=== PATIENT | female | born 1930 | race Caucasian/White ===

== ENCOUNTER 2017-08-03 12:40 | Inpatient (IN) | payer OTHER ==
[~2017-08-03] VITALS: Ht 157.5 cm; Wt 77.2 kg
[2017-08-03 12:49] VITALS: Ht 157.5 cm; Wt 77.2 kg
[2017-08-03 13:38] LABS: BASOPHIL % 0.3 % (0-2); PLATELET COUNT 258 x10^3mcL (130-400); RED CELL DISTRIBUTION WIDTH 13.3 % (11.5-14.5)
[2017-08-03 13:42] LABS: CALCIUM 9.3 mg/dL (8.5-10.1); CHLORIDE SERUM 101 mmol/L (98-107); CREATININE SERUM 0.7 mg/dL (0.6-1.0); GLUCOSE SERUM 107 mg/dL (74-106); POTASSIUM SERUM 4.5 mmol/L (3.5-5.1); SODIUM SERUM 135 mmol/L (136-145)
[2017-08-03 13:44] LABS: microscopic required? YES; urine erythrocyte 1+ (NEGATIVE)
[2017-08-03 13:53] LABS: ALBUMIN 3.9 g/dL (3.4-5.0); ALKALINE PHOSPHATASE 107 U/L (46-116); ALT/SGPT 21 U/L (14-59); AST/SGOT 23 U/L (15-37); BILIRUBIN TOTAL 0.61 mg/dL (0.20-1.00); TOTAL PROTEIN, SERUM 8.2 g/dL (6.4-8.2)
[2017-08-03 14:04] LABS: CK-MB < 0.5 ng/mL (0-3.6); CREATINE KINASE 41 U/L (26-192)
[2017-08-03 15:02] VITALS: BP 160/70
[2017-08-03 15:02] LABS: MAGNESIUM 2.2 mg/dL (1.8-2.4); PHOSPHOROUS 3.1 mg/dL (2.5-4.9)
[2017-08-03 15:03] LABS: CHOLESTEROL/HDL RATIO 4.5
[2017-08-03 15:08] LABS: T3 TOTAL 1.04 ng/mL
[2017-08-03 15:11] LABS: FREE T4 1.31 ng/dL (0.76-1.46); FREE THYROXINE INDEX 3.6 ug/dL (1.4-4.5); T4(THYROXINE) 10.3 ug/dL (4.7-13.3)
[2017-08-03 16:38] VITALS: BP 166/81
[2017-08-03 20:18] VITALS: BP 120/57
[2017-08-04 05:31] VITALS: BP 142/68
[2017-08-04 06:53] LABS: BASOPHIL % 0.5 % (0-2); PLATELET COUNT 233 x10^3mcL (130-400); RED CELL DISTRIBUTION WIDTH 13.2 % (11.5-14.5)
[2017-08-04 07:24] LABS: CALCIUM 8.4 mg/dL (8.5-10.1); CARBON DIOXIDE 25.9 mmol/L (21-32); CHLORIDE SERUM 109 mmol/L (98-107); CREATININE SERUM 0.6 mg/dL (0.6-1.0); GLUCOSE SERUM 93 mg/dL (74-106); MAGNESIUM 1.8 mg/dL (1.8-2.4); PHOSPHOROUS 3.1 mg/dL (2.5-4.9); POTASSIUM SERUM 4.3 mmol/L (3.5-5.1); SODIUM SERUM 141 mmol/L (136-145)
[2017-08-04 09:45] VITALS: BP 144/66
[2017-08-04 13:28] VITALS: BP 143/61
[2017-08-04 16:51] VITALS: BP 132/89
[2017-08-04 16:52] VITALS: BP 120/77
[2017-08-04 20:59] VITALS: BP 103/67
[2017-08-05 05:50] VITALS: BP 137/59
[2017-08-05 07:25] LABS: BASOPHIL % 0.9 % (0-2); PLATELET COUNT 212 x10^3mcL (130-400); RED CELL DISTRIBUTION WIDTH 13.7 % (11.5-14.5)
[2017-08-05 07:35] LABS: CALCIUM 8.4 mg/dL (8.5-10.1); CHLORIDE SERUM 110 mmol/L (98-107); CREATININE SERUM 0.6 mg/dL (0.6-1.0); GLUCOSE SERUM 92 mg/dL (74-106); SODIUM SERUM 146 mmol/L (136-145)
[2017-08-05 09:37] VITALS: BP 166/66
[2017-08-05] MEDS ORDERED: LEVOFLOXACIN500 M1 PO (13:14)
[2017-08-05] MEDS ORDERED: LAC PO (13:14)
[2017-08-05] MEDS ORDERED: ZES5 PO (13:34)
[2017-08-05 13:59] VITALS: BP 177/88
[2017-08-05 15:22] VITALS: BP 158/69
[2017-08-05 17:09] VITALS: BP 158/69
[2017-08-05] MEDS ORDERED: LIPI10 PO (17:36)
== END 2017-08-05 18:26 | disposition home or self-care (01) | DRG 48 ==
LOC: ED 12:40 → DU 14:03
PROVIDERS: Emergency Medicine; Family Medicine
DX: G90.8 Other disorders of autonomic nervous system (principal); E87.0 Hyperosmolality and hypernatremia; N39.0 Urinary tract infection, site not specified; I16.0 Hypertensive urgency; E78.5 Hyperlipidemia, unspecified; Z53.29 Procedure and treatment not carried out because of patient's decision for other reasons; E66.9 Obesity, unspecified; E78.1 Pure hyperglyceridemia; E78.00 Pure hypercholesterolemia, unspecified; I51.7 Cardiomegaly; Z87.440 Personal history of urinary (tract) infections; Z68.31 Body mass index [BMI] 31.0-31.9, adult
CPT/HCPCS: 83880; 84439; J0360; J0696; J7030; J8597; Q0092

== ENCOUNTER 2019-08-25 16:02 | Inpatient (IN) | payer OTHER, MEDICARE ==
[~2019-08-25] VITALS: Ht 165.1 cm; Wt 72.3 kg
[~2019-08-25 16:02] MED LIST: LAC PO; LEVOFLOXACIN500 M1 PO; LIPI10 PO; ZES5 PO
[2019-08-25 16:16] VITALS: Ht 165.1 cm; Wt 72.3 kg
[2019-08-25 17:29] LABS: BASOPHIL % 0.4 % (0-2); PLATELET COUNT 373 x10^3mcL (130-400); RED CELL DISTRIBUTION WIDTH 13.3 % (11.5-14.5)
[2019-08-25 17:30] LABS: microscopic required? YES; urine erythrocyte 2+ (NEGATIVE)
[2019-08-25 17:50] LABS: CALCIUM 9.1 mg/dL (8.5-10.1); CARBON DIOXIDE 28.8 mmol/L (21-32); CHLORIDE SERUM 96 mmol/L (98-107); CREATININE SERUM 1.1 mg/dL (0.6-1.0); GLUCOSE SERUM 113 mg/dL (74-106); POTASSIUM SERUM 4.1 mmol/L (3.5-5.1); SODIUM SERUM 131 mmol/L (136-145)
[2019-08-25 18:02] LABS: ALKALINE PHOSPHATASE 433 U/L (46-116); ALT/SGPT 46 U/L (14-59); AMYLASE 76 U/L (25-115); AST/SGOT 79 U/L (15-37); BILIRUBIN TOTAL 0.5 mg/dL (0.20-1.00); LIPASE 211 IU/L (73-393); TOTAL PROTEIN, SERUM 7.3 g/dL (6.4-8.2)
[2019-08-25 20:36] LABS: T3 TOTAL 1.08 ng/mL
[2019-08-25] MEDS ORDERED: PROTONIX40 MG/Pac1 PO (20:42)
[2019-08-25] MEDS ORDERED: NOR5 PO (20:43)
[2019-08-25] MEDS ORDERED: DITROPAN XL5 MG PO (20:44)
[2019-08-25] MEDS ORDERED: MEMANTINE HCL5 MG PO (20:45)
[2019-08-25] MEDS ORDERED: LOVASTATIN PO (20:45)
[2019-08-25] MEDS ORDERED: [UNRECOGNIZED DRUG - CODE] PO (20:46)
[2019-08-25] MEDS ORDERED: COZAAR100 MG PO (20:47)
[2019-08-25 21:10] LABS: FREE T4 1.64 ng/dL (0.76-1.46); FREE THYROXINE INDEX 4.3 ug/dL (1.4-4.5); T4(THYROXINE) 11.3 ug/dL (4.7-13.3)
[2019-08-25 22:04] VITALS: BP 129/57
[2019-08-26 05:26] VITALS: BP 133/68
[2019-08-26 07:30] LABS: BASOPHIL % 0.3 % (0-2); PLATELET COUNT 370 x10^3mcL (130-400); RED CELL DISTRIBUTION WIDTH 13.4 % (11.5-14.5)
[2019-08-26 07:59] LABS: CALCIUM 9.4 mg/dL (8.5-10.1); CARBON DIOXIDE 26.4 mmol/L (21-32); CHLORIDE SERUM 99 mmol/L (98-107); CREATININE SERUM 0.9 mg/dL (0.6-1.0); GLUCOSE SERUM 110 mg/dL (74-106); MAGNESIUM 2.1 mg/dL (1.8-2.4); POTASSIUM SERUM 4.2 mmol/L (3.5-5.1); SODIUM SERUM 137 mmol/L (136-145)
[2019-08-26 09:23] VITALS: BP 130/49
[2019-08-26 11:13] VITALS: BP 137/63
[2019-08-26 17:00] VITALS: BP 154/70
[2019-08-26 20:57] VITALS: BP 140/61
[2019-08-27 05:31] VITALS: BP 134/71
[2019-08-27 07:40] VITALS: BP 122/62
[2019-08-27 09:08] LABS: ALPHA FETOPROTEIN TUMOR MARKER 3.6 ng/mL (0.0-8.3); CA 125 42.4 U/mL (0.0-38.1)
[2019-08-27 12:39] VITALS: BP 111/42
[2019-08-27 17:45] VITALS: BP 126/69
[2019-08-27 21:51] VITALS: BP 132/64
[2019-08-28 05:27] VITALS: BP 129/66
[2019-08-28 07:28] LABS: CALCIUM 9.4 mg/dL (8.5-10.1); CARBON DIOXIDE 29.9 mmol/L (21-32); CHLORIDE SERUM 100 mmol/L (98-107); CREATININE SERUM 0.9 mg/dL (0.6-1.0); GLUCOSE SERUM 101 mg/dL (74-106); POTASSIUM SERUM 4.4 mmol/L (3.5-5.1); SODIUM SERUM 135 mmol/L (136-145)
[2019-08-28 07:30] LABS: BASOPHIL % 0.3 % (0-2); PLATELET COUNT 339 x10^3mcL (130-400); RED CELL DISTRIBUTION WIDTH 13.1 % (11.5-14.5)
[2019-08-28 08:41] VITALS: BP 126/58
[2019-08-28 12:25] VITALS: BP 140/71
[2019-08-28 21:06] VITALS: BP 126/59
[2019-08-29 05:37] VITALS: BP 118/51
[2019-08-29 07:42] LABS: BASOPHIL % 0.3 % (0-2); PLATELET COUNT 355 x10^3mcL (130-400); RED CELL DISTRIBUTION WIDTH 13.1 % (11.5-14.5)
[2019-08-29 07:58] LABS: CALCIUM 9.6 mg/dL (8.5-10.1); CARBON DIOXIDE 27.2 mmol/L (21-32); CHLORIDE SERUM 101 mmol/L (98-107); CREATININE SERUM 0.8 mg/dL (0.6-1.0); GLUCOSE SERUM 98 mg/dL (74-106); POTASSIUM SERUM 3.9 mmol/L (3.5-5.1); SODIUM SERUM 135 mmol/L (136-145)
[2019-08-29 08:29] VITALS: BP 147/68
[2019-08-29 12:18] VITALS: BP 129/50
[2019-08-29 16:05] VITALS: BP 150/83
[2019-08-29 20:09] VITALS: BP 137/59
[2019-08-30 05:18] VITALS: BP 138/68
[2019-08-30 08:14] VITALS: BP 155/64
[2019-08-30 08:31] LABS: CALCIUM 9.3 mg/dL (8.5-10.1); CARBON DIOXIDE 27.9 mmol/L (21-32); CHLORIDE SERUM 102 mmol/L (98-107); CREATININE SERUM 0.7 mg/dL (0.6-1.0); GLUCOSE SERUM 91 mg/dL (74-106); POTASSIUM SERUM 3.9 mmol/L (3.5-5.1); SODIUM SERUM 138 mmol/L (136-145)
[2019-08-30 08:52] LABS: BASOPHIL % 0.3 % (0-2); PLATELET COUNT 358 x10^3mcL (130-400); RED CELL DISTRIBUTION WIDTH 13.5 % (11.5-14.5)
[2019-08-30 11:58] VITALS: BP 122/63
[2019-08-30 16:15] VITALS: BP 149/72
[2019-08-30 19:48] VITALS: BP 134/39
[2019-08-31 04:48] VITALS: BP 130/71
[2019-08-31 06:30] VITALS: BP 132/61
[2019-08-31 07:00] LABS: BASOPHIL % 0.3 % (0-2); PLATELET COUNT 357 x10^3mcL (130-400); RED CELL DISTRIBUTION WIDTH 13.6 % (11.5-14.5)
[2019-08-31 07:41] LABS: CALCIUM 9.1 mg/dL (8.5-10.1); CARBON DIOXIDE 26.7 mmol/L (21-32); CHLORIDE SERUM 102 mmol/L (98-107); CREATININE SERUM 0.9 mg/dL (0.6-1.0); GLUCOSE SERUM 106 mg/dL (74-106); POTASSIUM SERUM 3.8 mmol/L (3.5-5.1); SODIUM SERUM 140 mmol/L (136-145)
[2019-08-31 17:49] VITALS: BP 140/74
[2019-08-31 20:46] VITALS: BP 150/68
[2019-09-01 05:26] VITALS: BP 123/52
[2019-09-01 07:16] LABS: BASOPHIL % 0.1 % (0-2); PLATELET COUNT 321 x10^3mcL (130-400); RED CELL DISTRIBUTION WIDTH 13.6 % (11.5-14.5)
[2019-09-01 08:34] LABS: CALCIUM 8.4 mg/dL (8.5-10.1); CHLORIDE SERUM 102 mmol/L (98-107); CREATININE SERUM 0.9 mg/dL (0.6-1.0); GLUCOSE SERUM 106 mg/dL (74-106); MAGNESIUM 1.8 mg/dL (1.8-2.4); POTASSIUM SERUM 3.9 mmol/L (3.5-5.1); SODIUM SERUM 138 mmol/L (136-145)
[2019-09-01 09:05] VITALS: BP 139/59
[2019-09-01 13:45] VITALS: BP 120/57
[2019-09-01 17:38] VITALS: BP 125/53
[2019-09-01 21:30] VITALS: BP 125/68
[2019-09-02 06:05] VITALS: BP 115/57
[2019-09-02 06:50] LABS: BASOPHIL % 0.1 % (0-2); PLATELET COUNT 290 x10^3mcL (130-400); RED CELL DISTRIBUTION WIDTH 13.4 % (11.5-14.5)
[2019-09-02 07:24] LABS: CALCIUM 8.9 mg/dL (8.5-10.1); CARBON DIOXIDE 27.2 mmol/L (21-32); CHLORIDE SERUM 101 mmol/L (98-107); GLUCOSE SERUM 108 mg/dL (74-106); MAGNESIUM 1.9 mg/dL (1.8-2.4); PHOSPHOROUS 2.1 mg/dL (2.5-4.9); POTASSIUM SERUM 3.9 mmol/L (3.5-5.1); SODIUM SERUM 137 mmol/L (136-145)
[2019-09-02 09:51] VITALS: BP 149/62
[2019-09-02 12:13] VITALS: BP 126/58
[2019-09-02 16:55] VITALS: BP 131/73
[2019-09-02 18:05] VITALS: BP 131/73
== END 2019-09-02 20:20 | disposition home or self-care (01) | DRG 231 ==
LOC: ED 16:02 → MU 19:26
PROVIDERS: Emergency Medicine; Internal Medicine Gastroenterology; Student in an Organized Health Care Education/Training Program; ADMIT Family Medicine; ATTEND Family Medicine
PROC: 0DBE8ZX Excision of Large Intestine, Via Natural or Artificial Opening Endoscopic, Diagnostic (ICD-10-PCS; principal; 2019-08-26 08:00)
PROC: 0D1M4ZP Bypass Descending Colon to Rectum, Percutaneous Endoscopic Approach (ICD-10-PCS; 2019-08-31)
PROC: 0FB14ZX Excision of Right Lobe Liver, Percutaneous Endoscopic Approach, Diagnostic (ICD-10-PCS; 2019-08-31)
PROC: 0DBP0ZZ Excision of Rectum, Open Approach (ICD-10-PCS; 2019-08-31)
DX: C78.5 Secondary malignant neoplasm of large intestine and rectum (principal); C78.00 Secondary malignant neoplasm of unspecified lung; C78.7 Secondary malignant neoplasm of liver and intrahepatic bile duct; E44.1 Mild protein-calorie malnutrition; E87.1 Hypo-osmolality and hyponatremia; C20 Malignant neoplasm of rectum; D64.9 Anemia, unspecified; E78.00 Pure hypercholesterolemia, unspecified; I10 Essential (primary) hypertension; N39.0 Urinary tract infection, site not specified; Z87.440 Personal history of urinary (tract) infections; Z79.899 Other long term (current) drug therapy; Z83.3 Family history of diabetes mellitus; Z68.26 Body mass index [BMI] 26.0-26.9, adult
CPT/HCPCS: 45378; 83880; 84439; 88344; 88361; 94150; 97116-GP; 97530-GP; C1758; C9113; G0378; J0690; J0696; J1170; J1200; J1610; J2001; J2250; J2310; J2405; J3010; J3490; J7042; Q0092; Q0162